=== PATIENT | male | born 1960 | race African-American/Black ===

== ENCOUNTER 2016-11-26 08:44 | Inpatient (IN) | payer BC ==
[2016-11-26 09:42] VITALS: BMI 20.6
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
[2016-11-26] MEDS ORDERED: MAGNESIUM CITRATE 300 ML BOTTLE PO PRN (11:10)
[2016-11-26] MEDS ORDERED: LOPERAMIDE HCL 2 MG CAPSULE PO PRN (11:10)
[2016-11-26] MEDS ORDERED: guaiFENesin/D-METHORPHAN HB 10 ML UNIT-DOSE CUPS PO PRN (11:10)
[2016-11-26] MEDS ORDERED: MENTHOL/PHENOL 1 EACH UD MM PRN (11:10)
[2016-11-26] MEDS ORDERED: NICOTINE POLACRILEX 4 MG GUM BC PRN (11:10)
[2016-11-26] MEDS ORDERED: diphenhydrAMINE HCL 50 MG CAPSULE PO PRN (11:10)
[2016-11-26] MEDS ORDERED: MAG HYDROX/AL HYDROX/SIMETH 30 ML UNIT-DOSE CUP PO PRN (11:10)
[2016-11-26] MEDS ORDERED: P-EPHED 60MG/TRIPROLIDI 2.5MG TABLET PO PRN (11:10)
[2016-11-26] MEDS ORDERED: hydrOXYzine PAMOATE 25 MG CAPSULE (FP) PO PRN (11:10)
[2016-11-26] MEDS ORDERED: chlordiazePOXIDE HCL 25 MG CAPSULE PO PRN (11:10)
[2016-11-26] MEDS ORDERED: MAGNESIUM HYDROX 2400MG/30ML ORAL SUSPENSION 30 ML CUP PO PRN (11:10)
[2016-11-26] MEDS ORDERED: chlordiazePOXIDE HCL 25 MG CAPSULE PO ONE (13:00)
[2016-11-26] MEDS: NICOTINE 21 MG/24 HOURS TOPICAL PATCH TD SCH (13:09)
[2016-11-26] MEDS: BACITRACIN 0.9 GM PACKET TP SCH ×2 (13:09→22:02)
[2016-11-26 17:09] LABS: URINE APPEARANCE CLEAR; URINE BILIRUBIN NEGATIVE (NEGATIVE); URINE BLOOD NEGATIVE (NEGATIVE); URINE COLOR LTYELLOW; URINE GLUCOSE (UA) NEGATIVE (NEGATIVE); URINE KETONE NEGATIVE (NEGATIVE); URINE LEUK ESTERASE NEGATIVE (NEGATIVE); URINE NITRITE NEGATIVE (NEGATIVE); URINE PROTEIN NEGATIVE (NEGATIVE); URINE UROBILINOGEN NEGATIVE mg/dL (0.2-1.0)
[2016-11-26] MEDS: chlordiazePOXIDE HCL 25 MG CAPSULE PO SCH ×2 (17:09→22:02)
[2016-11-26] MEDS: THIAMINE HCL 100 MG TABLET (FP) PO SCH (22:02)
[2016-11-27] MEDS: chlordiazePOXIDE HCL 25 MG CAPSULE PO SCH ×4 (05:33→22:07)
[2016-11-27 09:23] LABS: HIV 1 & 2 AB NEGATIVE; HIV 1 AGp24 NEGATIVE
[2016-11-27 09:58] LABS: MCHC 33.4 g/dl (32.0-35.9); MEAN CELL VOLUME 98.7 fl (80-96); MEAN PLT VOLUME 10.6 fl (7.5-11.1); PLATELET COUNT 158 K/MM3 (134-434); RDW 12.6 % (11.9-15.9); WHITE BLOOD COUNT 5.1 K/mm3 (4.0-10.0)
[2016-11-27] MEDS: BACITRACIN 0.9 GM PACKET TP SCH ×2 (10:21→22:07)
[2016-11-27] MEDS: NICOTINE 21 MG/24 HOURS TOPICAL PATCH TD SCH (10:21)
[2016-11-27] MEDS: PRENATAL VITAMINS W/ FOLIC ACID TABLET (FP) PO SCH (10:21)
[2016-11-27 10:47] LABS: ALBUMIN 4.1 g/dl (3.4-5.0); ALK PHOS 69 U/L (45-117); ANION GAP 11 (8-16); BILIRUBIN,TOTAL 1.2 mg/dL (0.2-1.0); CALCIUM 9.4 mg/dL (8.5-10.1); CO2 28 mmol/L (21-32); GLUCOSE,RANDOM 134 mg/dL (74-106); SGOT/AST 47 U/L (15-37); SGPT/ALT 27 U/L (12-78); TOT PROT 7.8 g/dl (6.4-8.2)
--- NOTE | 2016-11-27 11:35 | PN ---
S CIWA - CIWA Score Nausea/Vomitin Muscle Tremors: 3 Anxiety: 3 Agitation: 2 Paroxysmal Sweats: 1-Minimal Palms Moist Orientation: 0-Oriented Tacttile Disturbances: 1-Very Mild Itch/Numbness Auditory Disturbances: 1-Very Mild Visual Disturbances: 0-None Headache: 2-Mild CIWA-Ar Total Score: 16 S Progress Note (SOAP) Subjective: ALERT,IRRITABLE,ANXIOUS,INTERRUPTED SLEEP,TREMOR Objective: 11/27/16 11:32 Vital Signs Temperature 97.3 F L 11/27/16 10:24 Pulse Rate 78 11/27/16 10:24 Respiratory Rate 18 11/27/16 10:24 Blood Pressure 108/76 11/27/16 10:24 O2 Sat by Pulse Oximetry (%) EKG NSR,NORMAL ECG Laboratory Last Values WBC 5.1 K/mm3 (4.0-10.0) 11/27/16 06:00 RBC 4.58 M/mm3 (4.00-5.60) 11/27/16 06:00 Hgb 15.1 GM/dL (11.7-16.9) 11/27/16 06:00 Hct 45.2 % (35.4-49) 11/27/16 06:00 MCV 98.7 fl (80-96) H 11/27/16 06:00 MCH 33.0 pg (25.7-33.7) 11/27/16 06:00 MCHC 33.4 g/dl (32.0-35.9) 11/27/16 06:00 RDW 12.6 % (11.9-15.9) 11/27/16 06:00 Plt Count 158 K/MM3 (134-434) 11/27/16 06:00 MPV 10.6 fl (7.5-11.1) 11/27/16 06:00 Sodium 140 mmol/L (136-145) 11/27/16 06:00 Potassium 4.0 mmol/L (3.5-5.1) 11/27/16 06:00 Chloride 101 mmol/L (98-107) 11/27/16 06:00 Carbon Dioxide 28 mmol/L (21-32) 11/27/16 06:00 Anion Gap 11 (8-16) 11/27/16 06:00 BUN 9 mg/dL (7-18) 11/27/16 06:00 Creatinine 1.0 mg/dL (0.7-1.3) 11/27/16 06:00 Creat Clearance w eGFR > 60 (>60) 11/27/16 06:00 Random Glucose 134 mg/dL (74-106) H 11/27/16 06:00 Calcium 9.4 mg/dL (8.5-10.1) 11/27/16 06:00 Total Bilirubin 1.2 mg/dL (0.2-1.0) H 11/27/16 06:00 AST 47 U/L (15-37) H 11/27/16 06:00 ALT 27 U/L (12-78) 11/27/16 06:00 Alkaline Phosphatase 69 U/L (45-117) 11/27/16 06:00 Total Protein 7.8 g/dl (6.4-8.2) 11/27/16 06:00 Albumin 4.1 g/dl (3.4-5.0) 11/27/16 06:00 Urine Color Ltyellow 11/26/16 15:00 Urine Appearance Clear 11/26/16 15:00 Urine pH 5.0 (5.0-8.0) 11/26/16 15:00 Ur Specific [place] <= 1.005 (1.005-1.025) 11/26/16 15:00 Urine Protein Negative (NEGATIVE) 11/26/16 15:00 Urine Glucose (UA) Negative (NEGATIVE) 11/26/16 15:00 Urine Ketones Negative (NEGATIVE) 11/26/16 15:00 Urine Blood Negative (NEGATIVE) 11/26/16 15:00 Urine Nitrite Negative (NEGATIVE) 11/26/16 15:00 Urine Bilirubin Negative (NEGATIVE) 11/26/16 15:00 Urine Urobilinogen Negative mg/dL (0.2-1.0) 11/26/16 15:00 Ur Leukocyte Esterase Negative (NEGATIVE) 11/26/16 15:00 Hepatitis C Antibody 0.1 s/co ratio (0.0-0.9) 11/26/16 11:00 HIV 1&2 Antibody Screen Negative 11/26/16 11:00 HIV P24 Antigen Negative 11/26/16 11:00 Assessment: 11/27/16 11:34 WITHDRAWAL SYMPTOM Plan: CONTINUE DETOX,GLUCOSE 134,BGM MONITORING BID,FASTING GLUCOSE IN AM
[2016-11-27 12:10] LABS: SICKLE CELL SCREEN NEGATIVE (NEGATIVE)
[2016-11-27] MEDS: THIAMINE HCL 100 MG TABLET (FP) PO SCH (22:07)
[2016-11-28] MEDS: chlordiazePOXIDE HCL 25 MG CAPSULE PO SCH ×2 (05:31→10:08)
[2016-11-28] MEDS: BACITRACIN 0.9 GM PACKET TP SCH ×2 (10:08→22:05)
[2016-11-28] MEDS: PRENATAL VITAMINS W/ FOLIC ACID TABLET (FP) PO SCH (10:08)
[2016-11-28] MEDS: NICOTINE 21 MG/24 HOURS TOPICAL PATCH TD SCH (10:09)
--- NOTE | 2016-11-28 10:40 | PN ---
S CIWA - CIWA Score Nausea/Vomitin Muscle Tremors: 4-Moderate,w/Arms Extend Anxiety: 4-Mod. Anxious/Guarded Agitation: 4-Moderately Restless Paroxysmal Sweats: 3 Orientation: 0-Oriented Tacttile Disturbances: 0-None Auditory Disturbances: 0-None Visual Disturbances: 0-None Headache: 0-None Present CIWA-Ar Total Score: 18 BHS Progress Note (SOAP) Subjective: nausea, sweats, interrupted sleep, anxiety, low back pain can not take ibuprofen Objective: 11/28/16 10:38 Vital Signs - 24 hr 11/27/16 11/27/16 11/27/16 14:20 18:25 22:00 Temperature 96.8 F L 97.9 F 97.3 F L Pulse Rate 77 66 73 Respiratory 18 18 18 Rate Blood Pressure 116/74 108/66 111/70 11/28/16 11/28/16 11/28/16 00:30 03:30 06:32 Temperature 97.2 F L Pulse Rate 59 L Respiratory 18 18 16 Rate Blood Pressure 101/55 11/28/16 09:53 Temperature 97.5 F L Pulse Rate 67 Respiratory 18 Rate Blood Pressure 102/69 Vital Signs - 8 hr 11/28/16 11/28/16 11/28/16 03:30 06:32 09:53 Temperature 97.2 F L 97.5 F L Pulse Rate 59 L 67 Respiratory 18 16 18 Rate Blood Pressure 101/55 102/69 Assessment: 11/28/16 10:39 withdrawal sx, chronic low back pain Plan: cont detox, flexeril tid, fluids, encourage ambulation
[2016-11-28] MEDS: CYCLOBENZAPRINE HCL 10 MG TABLET (FP) PO SCH ×2 (13:46→22:05)
[2016-11-28] MEDS: chlordiazePOXIDE 5 MG CAPSULE PO SCH ×2 (17:21→22:05)
[2016-11-28] MEDS: THIAMINE HCL 100 MG TABLET (FP) PO SCH (22:04)
[2016-11-29] MEDS: chlordiazePOXIDE 5 MG CAPSULE PO SCH ×2 (06:06→11:07)
[2016-11-29] MEDS: CYCLOBENZAPRINE HCL 10 MG TABLET (FP) PO SCH ×3 (06:07→23:52)
[2016-11-29] MEDS: PRENATAL VITAMINS W/ FOLIC ACID TABLET (FP) PO SCH (11:06)
[2016-11-29] MEDS: BACITRACIN 0.9 GM PACKET TP SCH (11:06)
[2016-11-29] MEDS: NICOTINE 21 MG/24 HOURS TOPICAL PATCH TD SCH (11:07)
--- NOTE | 2016-11-29 11:37 | EKG ---
Test Reason : Blood Pressure : / mmHG Vent. Rate : 073 BPM Atrial Rate : 073 BPM P-R Int : 182 ms QRS Dur : 088 ms QT Int : 404 ms P-R-T Axes : 067 025 062 degrees QTc Int : 445 ms NORMAL SINUS RHYTHM NORMAL ECG NO PREVIOUS ECGS AVAILABLE Confirmed by KATELYNN RAMIREZ MD ([id number]) on 11/29/2016 11:37:00 AM Referred By: Confirmed By:KATELYNN RAMIREZ MD
--- NOTE | 2016-11-29 13:26 | PN ---
BHS Progress Note (SOAP) Subjective: nausea, sweats, interrutped sleep, anxiety, tremors, Objective: 11/29/16 13:25 Vital Signs - 8 hr 11/29/16 11/29/16 06:38 09:33 Temperature 96.9 F L 97.5 F L Pulse Rate 62 79 Respiratory 16 16 Rate Blood Pressure 101/63 99/61 Laboratory Tests 11/26/16 11/26/16 11/26/16 11:00 11:00 15:00 WBC RBC Hgb Hct MCV MCH MCHC RDW Plt Count MPV Sickle Cell Screen Sodium Potassium Chloride Carbon Dioxide Anion Gap BUN Creatinine Creat Clearance w eGFR POC Glucometer Random Glucose Fasting Glucose Calcium Total Bilirubin AST ALT Alkaline Phosphatase Total Protein Albumin Urine Color Ltyellow Urine Appearance Clear Urine pH 5.0 Ur Specific [place] <= 1.005 Urine Protein Negative Urine Glucose (UA) Negative Urine Ketones Negative Urine Blood Negative Urine Nitrite Negative Urine Bilirubin Negative Urine Urobilinogen Negative Ur Leukocyte Esterase Negative RPR Titer Hepatitis C Antibody 0.1 HIV 1&2 Antibody Screen Negative HIV P24 Antigen Negative 11/27/16 11/27/16 11/27/16 06:00 06:00 06:00 WBC 5.1 RBC 4.58 Hgb 15.1 Hct 45.2 MCV 98.7 H MCH 33.0 MCHC 33.4 RDW 12.6 Plt Count 158 MPV 10.6 Sickle Cell Screen Negative Sodium 140 Potassium 4.0 Chloride 101 Carbon Dioxide 28 Anion Gap 11 BUN 9 Creatinine 1.0 Creat Clearance w eGFR > 60 POC Glucometer Random Glucose 134 H Fasting Glucose Calcium 9.4 Total Bilirubin 1.2 H AST 47 H ALT 27 Alkaline Phosphatase 69 Total Protein 7.8 Albumin 4.1 Urine Color Urine Appearance Urine pH Ur Specific [place] Urine Protein Urine Glucose (UA) Urine Ketones Urine Blood Urine Nitrite Urine Bilirubin Urine Urobilinogen Ur Leukocyte Esterase RPR Titer Nonreactive Hepatitis C Antibody HIV 1&2 Antibody Screen HIV P24 Antigen 11/27/16 11/28/16 11/28/16 16:20 06:09 07:00 WBC RBC Hgb Hct MCV MCH MCHC RDW Plt Count MPV Sickle Cell Screen Sodium Potassium Chloride Carbon Dioxide Anion Gap BUN Creatinine Creat Clearance w eGFR POC Glucometer 111 113 Random Glucose Fasting Glucose 89 Calcium Total Bilirubin AST ALT Alkaline Phosphatase Total Protein Albumin Urine Color Urine Appearance Urine pH Ur Specific [place] Urine Protein Urine Glucose (UA) Urine Ketones Urine Blood Urine Nitrite Urine Bilirubin Urine Urobilinogen Ur Leukocyte Esterase RPR Titer Hepatitis C Antibody HIV 1&2 Antibody Screen HIV P24 Antigen 11/28/16 11/29/16 16:31 07:47 WBC RBC Hgb Hct MCV MCH MCHC RDW Plt Count MPV Sickle Cell Screen Sodium Potassium Chloride Carbon Dioxide Anion Gap BUN Creatinine Creat Clearance w eGFR POC Glucometer 136 100 Random Glucose Fasting Glucose Calcium Total Bilirubin AST ALT Alkaline Phosphatase Total Protein Albumin Urine Color Urine Appearance Urine pH Ur Specific [place] Urine Protein Urine Glucose (UA) Urine Ketones Urine Blood Urine Nitrite Urine Bilirubin Urine Urobilinogen Ur Leukocyte Esterase RPR Titer Hepatitis C Antibody HIV 1&2 Antibody Screen HIV P24 Antigen Assessment: 11/29/16 13:25 withwal sx, macrosytosis Plan: cont detox, fluids
[2016-11-29] MEDS: LIDOCAINE 5% TOPICAL PATCH TP SCH (15:11)
[2016-11-29] MEDS: GABAPENTIN 100 MG CAPSULE (FP) PO SCH ×2 (15:11→23:52)
[2016-11-29] MEDS: chlordiazePOXIDE HCL 10 MG CAPSULE PO SCH ×2 (19:07→23:52)
[2016-11-29] MEDS ORDERED: LIDOCAINE PATCH REMOVAL MC SCH (22:00)
[2016-11-29] MEDS: ACETAMINOPHEN 325 MG TABLET (FP) PO PRN (23:52)
[2016-11-29] MEDS: THIAMINE HCL 100 MG TABLET (FP) PO SCH (23:54)
[2016-11-30] MEDS: GABAPENTIN 100 MG CAPSULE (FP) PO SCH (06:11)
[2016-11-30] MEDS: chlordiazePOXIDE HCL 10 MG CAPSULE PO SCH ×2 (06:11→10:00)
[2016-11-30] MEDS: CYCLOBENZAPRINE HCL 10 MG TABLET (FP) PO SCH (06:11)
[2016-11-30] MEDS: ACETAMINOPHEN 325 MG TABLET (FP) PO PRN (06:12)
--- NOTE | 2016-11-30 09:43 | DS ---
[facility] Detox Discharge Summary Admission Date: 11/26/16 Discharge Date: 11/30/16 - History Present History: Alcohol Dependence Additional Comments: FOLLOW UP WITH AFTER CARE PROGRAM ARRANGEMENT Pertinent Past History: SEIZURE - Physical Exam Results Vital Signs: Vital Signs Temperature 97.2 F L 11/30/16 06:00 Pulse Rate 76 11/30/16 06:00 Respiratory Rate 18 11/30/16 06:00 Blood Pressure 119/74 11/30/16 06:00 O2 Sat by Pulse Oximetry (%) Pertinent Admission Physical Exam Findings: WITHDRAWAL SYMPTOM - Treatment Hospital Course: Detox Protocol Followed, Detoxed Safely, Responded well, Discharged Condition Good - Medication Discharge Medications: Ambulatory Orders NK [No Known Home Medication] 11/26/16 - Diagnosis (1) Alcohol dependence with uncomplicated withdrawal Current Visit: Yes Status: Acute (2) History of seizure Current Visit: Yes Status: Suspected - AMA Did Patient Leave Against Medical Advice: No
[2016-11-30] MEDS: PRENATAL VITAMINS W/ FOLIC ACID TABLET (FP) PO SCH (10:00)
[2016-11-30] MEDS: LIDOCAINE 5% TOPICAL PATCH TP SCH (10:00)
[2016-11-30] MEDS: NICOTINE 21 MG/24 HOURS TOPICAL PATCH TD SCH (10:00)
[2016-11-30] MEDS: BACITRACIN 0.9 GM PACKET TP SCH (10:00)
[2016-11-30 10:04] VITALS: BP 103/55; PULSE 89; TEMP 96
== END 2016-11-30 11:40 | disposition home or self-care (01) | DRG 775 ==
LOC: YASAS 08:44 → Y6N 11:52
PROVIDERS: ADMIT Internal Medicine Addiction Medicine; ATTEND Internal Medicine Addiction Medicine
PROC: HZ2ZZZZ Detoxification Services for Substance Abuse Treatment (ICD-10-PCS; principal; 2016-11-30)
DX: F10.230 Alcohol dependence with withdrawal, uncomplicated (principal); Z86.69 Personal history of other diseases of the nervous system and sense organs; Z86.73 Personal history of transient ischemic attack (TIA), and cerebral infarction without residual deficits; Z87.438 Personal history of other diseases of male genital organs; Z59.0 Homelessness
CPT/HCPCS: 36415; 80053; 81003; 82947; 85027; 85660; 86593; 86803; 87389; 93005; 93010

== ENCOUNTER 2020-05-27 13:42 | Inpatient (IN) | payer BC ==
[2020-05-27 19:37] VITALS: BMI 20.9
[2020-05-27] MEDS ORDERED: MAG HYDROX/AL HYDROX/SIMETH 30 ML UNIT-DOSE CUP PO PRN (20:40)
[2020-05-27] MEDS ORDERED: NICOTINE POLACRILEX 2 MG GUM BUC PRN (20:40)
[2020-05-27] MEDS ORDERED: METHOCARBAMOL 500 MG TABLET PO PRN (20:40)
[2020-05-27] MEDS ORDERED: ACETAMINOPHEN 325 MG TABLET (FP) PO PRN ×2 (20:40)
[2020-05-27] MEDS ORDERED: MAGNESIUM HYDROX 2400MG/30ML ORAL SUSPENSION 30 ML CUP PO PRN (20:40)
[2020-05-27] MEDS ORDERED: BISMUTH SUBSALICYLATE 524 MG/30 ML UD PO PRN (20:40)
[2020-05-27] MEDS ORDERED: ONDANSETRON *ODT* 4 MG TABLET SL PRN (20:40)
[2020-05-27] MEDS ORDERED: MAGNESIUM CITRATE 300 ML BOTTLE PO PRN (20:40)
[2020-05-27] MEDS ORDERED: MENTHOL/PHENOL 1 EACH UD MM PRN (20:40)
[2020-05-27] MEDS ORDERED: chlordiazePOXIDE HCL 25 MG CAPSULE PO PRN (20:40)
[2020-05-27] MEDS ORDERED: BENZOCAINE 20 % GEL TUBE MM PRN (20:45)
[2020-05-27] MEDS: MELATONIN 5 MG TABLETS PO SCH (22:41)
[2020-05-27] MEDS: THIAMINE HCL 100 MG TABLET (FP) PO SCH (22:41)
[2020-05-27] MEDS: guaiFENesin 200 MG/10 ML 10 ML UNIT-DOSE CUPS PO SCH (22:42)
[2020-05-27] MEDS: chlordiazePOXIDE HCL 25 MG CAPSULE PO SCH (22:52)
[2020-05-28] MEDS: chlordiazePOXIDE HCL 25 MG CAPSULE PO SCH ×4 (06:45→22:57)
[2020-05-28] MEDS: guaiFENesin 200 MG/10 ML 10 ML UNIT-DOSE CUPS PO SCH ×3 (06:48→16:31)
[2020-05-28] MEDS: NICOTINE 21 MG/24 HOURS TOPICAL PATCH TD SCH (10:34)
[2020-05-28] MEDS: PRENATAL VITAMINS W/ FOLIC ACID TABLET (FP) PO SCH (10:35)
[2020-05-28 11:27] LABS: HEMOGLOBIN 12.3 GM/dL (11.7-16.9); MCH 35.2 pg (25.7-33.7); MCHC 34.2 g/dl (32.0-35.9); MEAN CELL VOLUME 102.8 fl (80-96); MEAN PLT VOLUME 10.7 fl (7.5-11.1); PLATELET COUNT 130 K/MM3 (134-434); RDW 12.6 % (11.9-15.9); WHITE BLOOD COUNT 5.1 K/mm3 (4.0-10.0)
[2020-05-28 11:52] LABS: POTASSIUM 3.9 mmol/L (3.5-5.1)
[2020-05-28 11:59] LABS: ALBUMIN 3.7 g/dl (3.4-5.0); BLOOD UREA NITROGEN 13.9 mg/dL (7-18); CALCIUM 9.1 mg/dL (8.5-10.1)
[2020-05-28 12:02] LABS: CREATININE 0.7 mg/dL (0.55-1.3)
[2020-05-28 12:04] LABS: BILIRUBIN,TOTAL 2.2 mg/dL (0.2-1); TOT PROT 6.5 g/dl (6.4-8.2)
[2020-05-28] MEDS ORDERED: guaiFENesin 200 MG/10 ML 10 ML UNIT-DOSE CUPS PO PRN (14:56)
[2020-05-28] MEDS: THIAMINE HCL 100 MG TABLET (FP) PO SCH (22:57)
[2020-05-28] MEDS: MELATONIN 5 MG TABLETS PO SCH (22:57)
[2020-05-29] MEDS: chlordiazePOXIDE HCL 25 MG CAPSULE PO SCH ×2 (07:11→10:39)
[2020-05-29] MEDS: PRENATAL VITAMINS W/ FOLIC ACID TABLET (FP) PO SCH (10:38)
[2020-05-29] MEDS: NICOTINE 21 MG/24 HOURS TOPICAL PATCH TD SCH (10:39)
[2020-05-29 13:06] VITALS: BP 111/68; PULSE 73; TEMP 97.3
[2020-05-30] MEDS ORDERED: chlordiazePOXIDE HCL 10 MG CAPSULE PO PRN
[2020-05-30] MEDS ORDERED: chlordiazePOXIDE HCL 10 MG CAPSULE PO SCH (05:00)
[2020-05-31] MEDS ORDERED: chlordiazePOXIDE HCL 10 MG CAPSULE PO SCH (05:00)
[2020-06-01] MEDS ORDERED: chlordiazePOXIDE HCL 10 MG CAPSULE PO ONE (05:00)
== END 2020-05-29 15:49 | disposition left against medical advice (07) | DRG 770 ==
LOC: YASAS 13:42 → Y3N 20:49
PROVIDERS: ADMIT Allergy & Immunology; ATTEND Allergy & Immunology
PROC: HZ2ZZZZ Detoxification Services for Substance Abuse Treatment (ICD-10-PCS; principal; 2020-05-27)
DX: F10.230 Alcohol dependence with withdrawal, uncomplicated (principal); F17.210 Nicotine dependence, cigarettes, uncomplicated; D69.6 Thrombocytopenia, unspecified; G40.909 Epilepsy, unspecified, not intractable, without status epilepticus; R94.5 Abnormal results of liver function studies; R05 Cough; R63.8 Other symptoms and signs concerning food and fluid intake; R63.6 Underweight; Z68.20 Body mass index [BMI] 20.0-20.9, adult; Z88.6 Allergy status to analgesic agent; Z59.0 Homelessness
CPT/HCPCS: 36415; 80053; 85027; 86780; 93005; 93010; C9803; U0003